=== PATIENT | male | born 1995 | race Two or more races ===

== ENCOUNTER 2017-09-02 09:26 | Emergency (ER) | payer SELFPAY ==
[~2017-09-02] VITALS: Ht 188 cm; Wt 83.9 kg
[2017-09-02] MEDS ORDERED: HYDROCODONE/APAP 10MG-325MG TAB PO ONE (10:00)
[2017-09-02] MEDS ORDERED: LIDOCAINE 1% 5ML-MPF INJ ONE (10:15)
--- NOTE | 2017-09-02 10:17 | Diagnostic Imaging Report ---
EXAM: HAND 3+ VIEWS RIGHT DATE: 09/02/2017 9:37 AM INDICATION: Pain COMPARISON: None FINDINGS: There is dislocation of the fifth PIP joint with dorsal and medial displacement. Minimal override present. No distinct fracture is identified. Remainder of hand unremarkable. IMPRESSION: Fifth PIP dislocation. Signed by: Dr. Preston Concepcion MD on 09/02/2017 10:13 AM
--- NOTE | 2017-09-02 11:24 | Diagnostic Imaging Report ---
EXAM: HAND RIGHT 2 VIEWS DATE: 09/02/2017 10:25 AM INDICATION: \S\POST-REDUCTION \S.br\ COMPARISON: Same day FINDINGS: Interval reduction of fifth PIP joint. There is a questionable nondisplaced fracture at the volar base of the middle phalanx. IMPRESSION: Reduction of dislocation with possible nondisplaced volar plate fracture middle phalanx. Signed by: Dr. Preston Concepcion MD on 09/02/2017 11:20 AM
== END 2017-09-02 12:00 | disposition home or self-care (01) ==
LOC: ER 09:26
DX: S63.286A Dislocation of proximal interphalangeal joint of right little finger, initial encounter (principal); W22.8XXA Striking against or struck by other objects, initial encounter; Y92.009 Unspecified place in unspecified non-institutional (private) residence as the place of occurrence of the external cause
CPT/HCPCS: 99283